=== PATIENT | male | born 1955 | race African-American/Black ===

== ENCOUNTER 2016-10-27 23:43 | Emergency (ER) | payer MEDICARE, OTHER ==
[~2016-10-27] VITALS: Ht 167.6 cm; Wt 105.0 kg
[~2016-10-27 23:43] MED LIST: ALLO100T PO; AMLO5 PO; ASPI325T PO; COZA100T PO; ERGO50000 PO; METO50TA PO; PRAV80 PO; RENATAB PO; RISP1TAB2 PO; SENS30TA PO; WAL-10TA2 PO
[2016-10-27 23:44] VITALS: BP 182/79; PULSE 102; RESP 16; TEMP 98.4; O2SAT 94
[2016-10-28] MEDS ORDERED: ACETAMINOPHEN/HYDROcodone 325 MG/5 MG TAB PO ONE (00:15)
[2016-10-28] MEDS ORDERED: ASPI-110 PO (00:32)
[2016-10-28] MEDS ORDERED: RENATAB PO (00:32)
[2016-10-28] MEDS ORDERED: ALLO100T PO (00:32)
[2016-10-28] MEDS ORDERED: PIOG30TA4 PO (00:32)
[2016-10-28] MEDS ORDERED: AMONIUM LACTATE TOP (00:32)
[2016-10-28] MEDS ORDERED: PRAV40TA2 PO (00:32)
[2016-10-28] MEDS ORDERED: LOSA100T PO (00:32)
[2016-10-28] MEDS ORDERED: RISP2TAB2 PO (00:32)
[2016-10-28] MEDS ORDERED: REFR1DRO IO (00:32)
[2016-10-28] MEDS ORDERED: SENS90TA PO (00:32)
[2016-10-28] MEDS ORDERED: AMLO2.5T PO (00:32)
--- NOTE | 2016-10-28 00:48 | PD ---
HPI . Right wrist injury Chief Complaint: Fall Time Seen by Provider: 00:02 Travel History International Travel<30 days: No Contact w/Intl Traveler<30days: No Traveled to known affect area: No History of Present Illness HPI Patient presents with the chief complaint of a right wrist injury. He states that he fell several hours ago injuring his wrist. He reports no treatment prior to presentation. Pain is exacerbated by movement. He denies any other associated injuries. [facility] Past Medical History Blood Disorders: No Heart Rhythm Problems: No Cancer: No Cardiovascular Problems: Yes High Cholesterol: Yes Chest Pain: No Congestive Heart Failure: No Diabetes: Yes Patient Takes Glucophage: No Diminished Hearing: Yes Endocrine: Yes Genitourinary: Yes (Kidney failure) Hypertension: Yes Immune Disorder: No Medical other: Yes (diabetic retinopathy with edema) Musculoskeletal: Yes (left foot surgery) Neurologic: No Psychiatric: No Reproductive: No Respiratory: No Thyroid Disease: No Social History Alcohol Use: No Tobacco Use: No (quit 13 yrs ago) Substance Use: No Allergies-Medications (Allergen,Severity, Reaction): Coded Allergies: Penicillin (Verified Allergy, Severe, 10/27/16) Shellfish (Verified Allergy, Severe, Anaphylaxis, 10/27/16) Reported Meds & Prescriptions Reported Meds & Active Scripts Active Ultram (Tramadol HCl) 50 Mg Tab 50 Mg PO Q4H PRN Reported Risperidone 2 Mg Tab 1 Mg PO HS Renal Multivitamin Formul (Multiple Vitamin) 1 Tab Tab 1 Tab PO DAILY@0600 Pravastatin 40 Mg Tab 20 Mg PO HS Pioglitazone (Pioglitazone HCl) 30 Mg Tab 30 Mg PO DAILY Losartan (Losartan Potassium) 100 Mg Tab 100 Mg PO DAILY Sensipar (Cinacalcet) 90 Mg Tab 180 Mg PO BID Refresh Liquigel (Carboxymethylcellulose Sodium) 1 % Nolan 1 Drop IO QID Aspirin 81 (Aspirin) 81 Mg Tabdr 81 Mg PO DAILY [amonium lactate] TOP DAILY Amlodipine (Amlodipine Besylate) 2.5 Mg Tab 2.5 Mg PO DAILY Allopurinol 100 Mg Tab 100 Mg PO DAILY Review of Systems Except as stated in HPI: all other systems reviewed are Neg Musculoskeletal: Positive: Arthralgias Skin: Positive Other (no associated break in the skin.) Neurologic: No: Weakness Physical Exam Narrative GENERAL: Awake and alert and in no acute distress. SKIN: Warm and dry. No abrasion or laceration noted on the right upper extremity. HEAD: Atraumatic. Normocephalic. EYES: Pupils equal and round. ENT: No nasal bleeding or discharge. Mucous membranes pink and moist. NECK: Trachea midline. Full range of motion of the neck without any apparent pain. CARDIOVASCULAR: Regular rate and rhythm. RESPIRATORY: No accessory muscle use. MUSCULOSKELETAL: Swelling of the right distal forearm with associated tenderness to palpation. He does have movement distally and has normal sensation, pulses and capillary refill. NEUROLOGICAL: Awake and alert. No obvious cranial nerve deficits. Motor grossly within normal limits. Normal speech. PSYCHIATRIC: Appropriate mood and affect; insight and judgment normal. Data Data Last Documented VS Vital Signs Date Time Temp Pulse Resp B/P Pulse Ox O2 Delivery O2 Flow Rate FiO2 10/27/16 23:44 98.4 102 16 182/79 94 Orders Forearm (2vws) (10/28/16 00:02) Wrist, Complete ([id number]) (10/28/16 00:02) Acetamin-Hydrocod 325-5 Mg ([place] 5-325 (10/28/16 00:15) Splint Or Brace Apply/Monitor (10/28/16 01:18) MDM Medical Decision Making Medical Screen Exam Complete: Yes Emergency Medical Condition: Yes Differential Diagnosis Differential diagnosis of extremity trauma includes but is not limited to fracture, sprain or strain, dislocation, contusion Narrative Course Patient presents for evaluation and treatment of an injury to his right wrist. I suspect that it is broken. X-rays to my interpretation are negative for fracture or dislocation. Diagnosis Primary Impression: Strain of right wrist Qualified Code: S66.911A - Strain of right wrist, initial encounter Patient Instructions: General Instructions, Narcotic given in the ED, Wrist Sprain (DC) Med/Other Pt SpecificInfo: Prescription(s) given Scripts Tramadol (Ultram)50 Mg Tab50 Mg PO Q4H PRN (PAIN) #10 TAB Ref 0 Prov:Shirin Elizondo MD 10/28/16 Disposition: 01 DISCHARGE HOME Condition: Stable Shirin Elizondo MD Oct 28, 2016 00:48
[2016-10-28] MEDS ORDERED: ULTR50TA5 PO (01:17)
--- NOTE | 2016-10-28 01:31 | RADRPT ---
EXAM DATE/TIME: 10/28/2016 00:32 [facility] COMPARISON: No previous studies available for comparison. INDICATIONS : Right distal arm pain post fall. MEDICAL HISTORY : None. SURGICAL HISTORY : None. ENCOUNTER: Initial ACUITY: 1 day PAIN SCORE: 6/10 LOCATION: Right wrist hand FINDINGS: Two view examination of the right forearm demonstrates no evidence of fracture or dislocation. Bony mineralization is normal. The soft tissue structures are intact. CONCLUSION: 1. There is no evidence of acute fracture. Jamison Torres MD on October 28, 2016 at 1:21 Board Certified Radiologist. This report was verified electronically.
--- NOTE | 2016-10-28 01:31 | RADRPT ---
EXAM DATE/TIME: 10/28/2016 00:36 [facility] COMPARISON: No previous studies available for comparison. INDICATIONS : Right distal arm pain post fall. MEDICAL HISTORY : None. SURGICAL HISTORY : None. ENCOUNTER: Initial ACUITY: 1 day PAIN SCORE: 8/10 LOCATION: Right wrist hand FINDINGS: Three view examination of the right wrist demonstrates no soft tissue swelling, dislocation, or fract ure. The carpal bones are in normal alignment. The joint spaces are maintained. Bony mineralizatio n is normal. CONCLUSION: 1. There is no evidence of acute fracture. Jamison Torres MD on October 28, 2016 at 1:29 Board Certified Radiologist. This report was verified electronically.
[2016-10-29] MEDS ORDERED: AMMO12LO TOPICAL (13:48)
== END 2016-10-28 02:14 | disposition home or self-care (01) ==
LOC: NEPC 23:43
DX: S66.911A Strain of unspecified muscle, fascia and tendon at wrist and hand level, right hand, initial encounter (principal); E78.00 Pure hypercholesterolemia, unspecified; I10 Essential (primary) hypertension; E11.319 Type 2 diabetes mellitus with unspecified diabetic retinopathy without macular edema; Z87.891 Personal history of nicotine dependence; W19.XXXA Unspecified fall, initial encounter
CPT/HCPCS: 73090; 73110; 99284; L3908